=== PATIENT | male | born 2000 | race Two or more races ===

== ENCOUNTER → 2020-11-19 | Outpatient (CLI) | payer BC | END | disposition home or self-care (01) | LOC: LAB 09:57 | PROVIDERS: ATTEND Nurse Practitioner Family | DX: Z20.822 Contact with and (suspected) exposure to COVID-19 (principal) | CPT/HCPCS: C9803; U0003 ==

== ENCOUNTER 2024-12-09 09:58 | Outpatient (CLI) | payer BC ==
[2024-12-09 10:37] LABS: Hematocrit 45.0 % (41.0-53.0); Hemoglobin 14.9 g/dL (13.5-17.5); Mean Corpuscular Hemoglobin 29.5 pg (28.0-32.0); Mean Corpuscular Volume 88.8 fL (80.0-100.0); Nucleated Red Blood Cells % 0.1 %
[2024-12-09 10:49] LABS: Urine Budding Yeast OCCASIONAL /hpf (None Seen); Urine Protein, UAD Negative (Negative)
[2024-12-09 11:10] LABS: Alanine Aminotransferase 20 U/L (7-40); Albumin 4.4 g/dL (3.2-4.8); Alkaline Phosphatase 69 U/L (46-116); Anion Gap 8 (5-15); BUN/Creatinine Ratio 9.5 (10.0-20.0); Bilirubin, Total 0.5 mg/dL (0.2-1.0); Blood Urea Nitrogen 7 mg/dL (9-23); Calcium 8.6 mg/dL (8.7-10.4); Carbon Dioxide 24 mmol/L (20-31); Chloride 108 mmol/L (98-107); Cholesterol 221 mg/dL (< 200); Glucose 105 mg/dL (74-106); HDL Cholesterol 40 mg/dL (40-59); Potassium 3.8 mmol/L (3.5-5.1); Sodium 140 mmol/L (136-145); Total Protein 7.0 g/dL (5.7-8.2); Triglycerides 97 mg/dL (< 150)
== END 2024-12-09 17:00 | disposition home or self-care (01) ==
LOC: LAB 09:58
PROVIDERS: ATTEND Internal Medicine
DX: Z13.1 Encounter for screening for diabetes mellitus (principal); Z00.01 Encounter for general adult medical examination with abnormal findings
CPT/HCPCS: 36415; 80053; 80061; 81001; 82785; 83036; 84439; 84443; 85025; 86003

== ENCOUNTER 2025-03-16 12:17 | Emergency (ER) | payer BC ==
[~2025-03-16] VITALS: Ht 167.6 cm; Wt 122.2 kg
[2025-03-16 12:18] VITALS: BP 151/91; PULSE 105; RESP 18; TEMP 97.8; O2SAT 98
[2025-03-16 14:02] LABS: Hematocrit 43.5 % (36.0-46.0); Hemoglobin 14.7 g/dL (12.2-16.2); Mean Corpuscular Hemoglobin 29.9 pg (28.0-32.0); Mean Corpuscular Volume 88.7 fL (80.0-100.0); Nucleated Red Blood Cells % 0.2 %
[2025-03-16] MEDS: KETOROLAC TROMETH 30 MG/ML 1ML VIAL IV ONE (14:09)
[2025-03-16 14:10] LABS: Chloride 101 mmol/L (98-107); Potassium 3.8 mmol/L (3.5-5.1)
[2025-03-16 14:11] LABS: Anion Gap 9 (5-15); Carbon Dioxide 25 mmol/L (20-31)
[2025-03-16 14:12] LABS: Calcium 9.4 mg/dL (8.7-10.4)
[2025-03-16 14:13] LABS: Sodium 135 mmol/L (136-145)
[2025-03-16] MEDS: SODIUM CHLORIDE 0.9% 1,000 ML IV ONE (14:14)
--- NOTE | 2025-03-16 14:14 | ED.PDOC ---
General HPI Comments 24 y/o F, presents to the ED for CC of flank pain. Patient states, she has been experiencing right-sided flank pain with associated symptoms of nausea/vomiting and urinary frequency x2days. Patient denies hematuria, burning upon urination, vaginal discharge, or suprapubic abdominal pain. No other symptoms or modifying factors are present at this time. Chief Complaint: Flank Pain Time Seen by MD: 14:00 Reviewed notes: Nurses Notes, Medications, Allergies Allergies: Coded Allergies: NO KNOWN ALLERGIES (Unverified , 03/16/25) Home Meds Active Scripts Cephalexin Monohydrate (Cephalexin) 500 Mg Cap, 500 MG PO Q6HR for 14 Days, #56 TAB Prov:FLAVIA GORMAN MD 03/16/25 Information Source: Patient Mode of Arrival: Ambulatory Severity: Moderate Inability to void: Moderate Timing: Days Duration: Since onset Prehospital treatment: None Onset: Spontaneous Symptoms: Frequency History of: None Location: (R) Flank Modifying factors: None associated signs and symptoms: Nausea, Vomiting, Frequency Past Medical History PAST MEDICAL HISTORY: Denies Surgical History: Denies all surgeries FINISHED 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: 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 all FINISHED YARN EXAMINER Hx Family History Family History: Unknown Social History Smoker: Non-Smoker Alcohol: Denies ETOH Use Drugs: Denies Drug Use Lives In: Home Constitutional: denies: chills, diaphoresis, fatigue, fever, malaise, sweats, weakness, others EENTM: denies: blurred vision, double vision, ear bleeding, ear discharge, ear drainage, ear pain, ear ringing, eye pain, eye redness, hearing loss, mouth pain, mouth swelling, nasal discharge, nose bleeding, nose congestion, nose pain, photophobia, tearing, throat pain, throat swelling, voice changes, others Respiratory: denies: cough, hemoptysis, orthopnea, SOB at rest, shortness of breath, SOB with excertion, stridor, wheezing, others Cardiovascular: denies: chest pain, dizzy spells, diaphoresis, Dyspnea on exertion, edema, irregular heart beat, left arm pain, lightheadedness, palpitations, PND, syncope, others Gastrointestinal: reports: nausea, vomiting; denies: abdomen distended, abdominal pain, blood streaked bowels, constipated, diarrhea, dysphagia, difficulty swallowing, hematemesis, melena, poor appetite, poor fluid intake, rectal bleeding, rectal pain, others Genitourinary: reports: flank pain, frequency; denies: abnormal vagina bleeding, burning, dyspareunia, dysuria, hematuria, incontinence, pain, , vagina discharge, urgency, others Neurological: denies: dizziness, fainting, headache, left sided numbness, left sided weakness, numbness, paresthesia, pre-existing deficit, right sided numbness, right sided weakness, seizure, speech problems, tingling, tremors, weakness, others Musculoskeletal: denies: back pain, gout, joint pain, joint swelling, muscle pain, muscle stiffness, neck pain, others Integumetry: denies: bruises, change in color, change in hair/nails, dryness, laceration, lesions, lumps, rash, wounds, others Allergic/Immunocompromised: denies: Difficulty Healing, Frequent Infections, Hives, Itching, others Hematologic/Lymphatic: denies: anemia, blood clots, easy bleeding, easy bruising, swollen glands, others Endocrine: denies: excessive hunger, excessive sweating, excessive thirst, excessive urination, flushing, intolerance to cold, intolerance to heat, unexplained weight gain, unexplained weight loss, others Psychiatric: denies: anxiety, bipolar disorder, depression, hopeless, panic disorder, schizophrenia, sleepless, suicidal, others All Other Systems: Reviewed and Negative Physical Exam General Appearance: No Apparent Distress, Normal HEENT: Normal ENT Inspection, Pharynx Normal Neck: Full Range of Motion, Non-Tender, Normal, Normal Inspection Respiratory: Chest Non-Tender, Lungs Clear, No Accessory Muscle Use, No Respiratory Distress, Normal Breath Sounds Cardiovascular: No Edema, No Murmur, No Gallop, Normal Peripheral Pulses, Regular Rate/Rhythm Breast Exam: Deferred Gastrointestinal: No Organomegaly, Non Tender, No Pulsatile Mass, Normal Bowel Sounds, Soft Genitalia: Deferred Pelvic: Deferred Rectal: Deferred Extremities: No calf tenderness, Normal capillary refill, Normal inspection, Normal range of motion, Non-tender, No pedal edema Musculoskeletal : Location: Right Extremity Location: Other (CVA) Apperance: Tenderness Neurologic: Alert, managing director atlas II-XII nml as Tested, No Motor Deficits, Normal Affect, Normal Mood, No Sensory Deficits Cerebellar Function: Normal Reflexes: Normal Skin: Dry, Normal Color, Warm Lymphatic: No Adenopathy Was a procedure done? Was a procedure done?: No Differential Diagnosis Kidney stone (Female): Pyelonephritis Kidney stone (Male): N/A Penile/Scrotal: N/A Urinary Problem (Male): N/A Urinary Problem (Female): Urinary retention, Urolithiasis, UTI X-Ray, Labs, Meds, VS Vital Signs Date Time Temp Pulse Resp B/P (MAP) Pulse Ox O2 Delivery O2 Flow Rate FiO2 03/16/25 12:18 97.8 105 18 151/91 98 97.8 Lab Test 03/16/25 16:16 03/16/25 13:39 Range/Units Urine Color Yellow Yellow Urine Clarity Turbid H Clear Urine pH 6.0 5.0-9.0 Urine Specific Kersey 1.021 1.001-1.035 Urine Protein 2+ H Negative Urine Ketones 2+ H Negative Urine Blood 2+ H Negative /uL Urine Nitrite 1+ H Negative Urine Bilirubin Negative Negative Urine Urobilinogen Normal Negative mg/dL Urine Leukocyte Esterase 3+ Negative /uL Urine RBC 38 0 - 4 /hpf Urine Microscopic WBC 210 H 0-5 /HPF Urine Squamous Epithelial Cells Mod <5 /hpf Urine Bacteria Few H None Seen /hpf Urine Mucus Few None Seen Urine Glucose Normal Normal mg/dL White Blood Count 17.8 H 4.4-10.8 10^3/uL Red Blood Count 4.90 4.0-5.20 10^6/uL Hemoglobin 14.7 12.2-16.2 g/dL Hematocrit 43.5 36.0-46.0 % Mean Corpuscular Volume 88.7 80.0-100.0 fL Mean Corpuscular Hemoglobin 29.9 28.0-32.0 pg Mean Corpuscular Hemoglobin Concent 33.8 32.0-36.0 g/dL Red Cell Distribution Width 14.6 H 11.8-14.3 % Platelet Count 148 140-450 10^3/uL Mean Platelet Volume 10.4 6.9-10.8 fL Neutrophils (%) (Auto) 89.5 H 37.0-80.0 % Lymphocytes (%) (Auto) 3.6 L 10.0-50.0 % Monocytes (%) (Auto) 6.6 0.0-12.0 % Eosinophils (%) (Auto) 0.0 0.0-7.0 % Basophils (%) (Auto) 0.3 0.0-2.0 % Neutrophils # (Auto) 15.9 H 1.6-8.6 10 ^3/uL Lymphocytes # (Auto) 0.6 0.4-5.4 10 ^3/uL Monocytes # (Auto) 1.2 0-1.3 10 ^3/uL Eosinophils # (Auto) 0 0-0.8 10 ^3/uL Basophils # (Auto) 0 0-0.2 10 ^3/uL Nucleated Red Blood Cells 0.2 % Platelet Estimate Decreased Giant Platelets Few Sodium Level 135 L 136-145 mmol/L Potassium Level 3.8 3.5-5.1 mmol/L Chloride Level 101 98-107 mmol/L Carbon Dioxide Level 25 20-31 mmol/L Anion Gap 9 5-15 Blood Urea Nitrogen 7 L 9-23 mg/dL Creatinine 0.89 0.550-1.02 mg/dL Glomerular Filtration Rate Calc 93 >90 mL/min BUN/Creatinine Ratio 7.9 L 10.0-20.0 Serum Glucose 116 H 74-106 mg/dL Calcium Level 9.4 8.7-10.4 mg/dL Current Medications Medications (Trade) Dose Ordered Sig/Wayne Route Start Time Stop Time Status Last Admin Sodium Chloride 1,000 ml @ 1,000 mls/hr Q1H ONCE IV 03/16/25 13:30 03/16/25 14:29 DC 03/16/25 14:14 Ketorolac Tromethamine (Toradol Injection) 15 mg ONCE ONCE IV 03/16/25 13:30 03/16/25 13:32 DC 03/16/25 14:09 Ceftriaxone Sodium 50 ml @ 100 mls/hr ONCE ONCE IV 03/16/25 16:15 03/16/25 16:44 DC 03/16/25 17:[address] [address] Ph: [phone] DIAGNOSTIC IMAGING Diagnostic Imaging Report : [id number] Signed PATIENT: EPHRAIM WEBER MACCT: [id number] UNIT: [id number] : 2000 LOC: ER ROOM / BED: / AGE / SEX: 24 / F ADM STATUS: REG ER SERVICE 1330 ORDERING PHYSICIAN: FLAVIA GORMAN MD PROCEDURE(s): ABPL - CT AB PEL WO CON-NO ORAL OR IV REASON: r/o right kidney stone/appy ORDER NUMBER(s): [id number], ACCESSION NUMBER(s): [id number] EXAM: CT CT AB PEL WO CON-NO ORAL OR IV History: r/o right kidney stone/appy. Pain. Comparison Study: None TECHNIQUE: Multidetector spiral CT of the abdomen was performed from lung bases to pubic symphysis. Imaging was performed without IV contrast. Axial, coronal and sagittal multiplanar reformats were obtained from the axial data set by the technologist. Radiation Dose : 1. Abdomen/Pelvis: CTDIvol 23.55 mGy, DLP 1417.73 mGy*cm. FINDINGS: Evaluation of solid organs is limited due to lack of intravenous contrast use. Lung Bases: No acute or significant lung base finding. Normal heart size. No pleural or pericardial effusion. Liver: The liver is normal in size. No focal lesions. Gallbladder and Biliary Tree: Unremarkable Spleen: Unremarkable Pancreas: The pancreas is grossly normal in appearance. Adrenal Glands: Unremarkable Kidneys: Mild perinephric and periureteric edema on the right. No hydronephrosis or calculus is seen. Bladder: Grossly unremarkable for degree of distention. Bowel: The stomach is grossly normal in appearance. Small bowel and colon are normal in caliber and distribution. Normal appendix is visualized in the right lower quadrant without findings of appendicitis. Ascites: Trace pelvic fluid. Lymphadenopathy: No mesenteric, retroperitoneal or periportal lymphadenopathy. Abdominal Wall and Mesentery: Unremarkable. Vasculature: The visualized abdominal aorta is normal in size and caliber. Evaluation of abdominal and pelvic vessels is limited due to lack of intravenous contrast. Pelvic Organs: Unremarkable Musculoskeletal: No aggressive focal bony lesions, acute fractures or dislocation. IMPRESSION: Mild right perinephric and periureteric edema without any residual stone. This could be related to a recently passed stone. Alternatively, an ascending urinary tract infection with pyelonephritis could have a similar appearance. Please correlate clinically. Otherwise no clear cause for symptoms. Radiation optimization: All CT scans at this facility use at least one of these dose optimization techniques: automated exposure control mA and/or kV adjustm ent per patient size (includes targeted exams where dose is matched to clinical indication) or iterative reconstruction. ATED BY: LUISITO MERCER MD DICTATED DATE/TIME: 03/16/251510 SIGNED BY: LUISITO MERCER MD SIGNED DATE/TIME: 03/16/251510 CC: X-Ray, Labs, Meds, VS Comment Patient presents with constellation of symptoms with positive UA that likely represents acute pyelonephritis. Given fluid bolus and ceftriaxone here in the emergency department guided by previously available culture data if available. Patient is otherwise hemodynamically stable without evidence of obstructing stone. Patient to be discharged home with prescription of Keflex and follow-up with primary care doctor within one week. Reviewed strict return precautions including, but not limited to worsening fever, PO intolerance, and worsening pain despite 48 hr antibiotics. Patient is in agreement with the plan and all questions answered. Considered nephrolithiasis, obstructed stone, atypical appendicitis, AAA, aortic dissection, genital torsion, cholecystitis, but consider these to be less likely based on history/physical/evaluation as above. Images Reviewed?: Images reviewed and evaluated by me Time of 1ST Reevaluation: 14:30 Reevaluation 1ST: Unchanged Patient Education/Counseling: Diagnosis, Treatment Family Education/Counseling: No Family Present SEPSIS Sepsis Screen Date sepsis recognized/suspect: Mar 16, 2025 Time Sepsis recognized/suspect: 1218 Recent Procedure: No On Antibiotic Therapy: No Respiratory Rate >20: No Heart Rate >90: Yes Temp<36 C (96.8 F) or >38.3 C: No SBP <90 or MAP <65 mmHG: No New Acute Mental Status Change: No Is the patient on CPAP, BIPAP,: No Physician Orders Ct Ab Pel Wo Con-No Oral Or Iv (03/16/25 13:30) Vital Signs Date Time Temp Pulse Resp B/P (MAP) Pulse Ox O2 Delivery O2 Flow Rate FiO2 03/16/25 12:18 97.8 105 18 151/91 98 97.8 Laboratory Tests Test 03/16/25 13:39 White Blood Count 17.8 10^3/uL (4.4-10.8) H Medications Medications Dose Ordered Sig/Wayne Route Start Time Stop Time Status Last Admin Dose Admin Ceftriaxone Sodium 50 ml @ 100 mls/hr ONCE ONCE IV 03/16/25 16:15 03/16/25 16:44 DC 03/16/25 17:03 Ketorolac Tromethamine 15 mg ONCE ONCE IV 03/16/25 13:30 03/16/25 13:32 DC 03/16/25 14:09 Sodium Chloride 1,000 ml @ 1,000 mls/hr Q1H ONCE IV 03/16/25 13:30 03/16/25 14:29 DC 03/16/25 14:14 Departure 1 Departure Time of Disposition: 18:56 Impression: Primary Impression: Pyelonephritis Disposition: HOME / SELF CARE / HOMELESS Condition: Stable e-Prescriptions Cephalexin Monohydrate (Cephalexin) 500 Mg Cap 500 MG PO Q6HR for 14 Days, #56 TAB Prov: FLAVIA GORMAN MD 03/16/25 Discharged With: Relative (Mother) Critical Care Note Critical Care Time?: Yes (30 min-critical care time only) Stability Stability form required: No Heart Score Heart Score: Heart Score Response (Comments) Value History N/A 0 EKG N/A 0 Age N/A 0 Risk Factors N/A 0 Troponin N/A 0 Total 0 I personally scribed for FLAVIA GORMAN MD ([email or web address]) on 03/16/25 at 14:14. Electronically submitted by Kim Krishnamurthy ([email or web address]). I personally scribed for FLAVIA GORMAN MD ([email or web address]) on 03/16/25 at 16:01. Electronically submitted by Kim Krishnamurthy ([email or web address]). FLAVIA GORMAN MD Mar 16, 2025 14:14
[2025-03-16 14:17] LABS: BUN/Creatinine Ratio 7.9 (10.0-20.0); Blood Urea Nitrogen 7 mg/dL (9-23); Glucose 116 mg/dL (74-106)
[2025-03-16 14:33] LABS: Giant Platelets Few
--- NOTE | 2025-03-16 15:13 | DVH ---
EXAM: CT CT AB PEL WO CON-NO ORAL OR IV History: r/o right kidney stone/appy. Pain. Comparison Study: None TECHNIQUE: Multidetector spiral CT of the abdomen was performed from lung bases to pubic symphysis. Imaging was performed without IV contrast. Axial, coronal and sagittal multiplanar reformats were obtained from the axial data set by the technologist. Radiation Dose : 1. Abdomen/Pelvis: CTDIvol 23.55 mGy, DLP 1417.73 mGy*cm. FINDINGS: Evaluation of solid organs is limited due to lack of intravenous contrast use. Lung Bases: No acute or significant lung base finding. Normal heart size. No pleural or pericardial effusion. Liver: The liver is normal in size. No focal lesions. Gallbladder and Biliary Tree: Unremarkable Spleen: Unremarkable Pancreas: The pancreas is grossly normal in appearance. Adrenal Glands: Unremarkable Kidneys: Mild perinephric and periureteric edema on the right. No hydronephrosis or calculus is seen. Bladder: Grossly unremarkable for degree of distention. Bowel: The stomach is grossly normal in appearance. Small bowel and colon are normal in caliber and distribution. Normal appendix is visualized in the right lower quadrant without findings of appendicitis. Ascites: Trace pelvic fluid. Lymphadenopathy: No mesenteric, retroperitoneal or periportal lymphadenopathy. Abdominal Wall and Mesentery: Unremarkable. Vasculature: The visualized abdominal aorta is normal in size and caliber. Evaluation of abdominal and pelvic vessels is limited due to lack of intravenous contrast. Pelvic Organs: Unremarkable Musculoskeletal: No aggressive focal bony lesions, acute fractures or dislocation. IMPRESSION: Mild right perinephric and periureteric edema without any residual stone. This could be related to a recently passed stone. Alternatively, an ascending urinary tract infection with pyelonephritis could have a similar appearance. Please correlate clinically. Otherwise no clear cause for symptoms. Radiation optimization: All CT scans at this facility use at least one of these dose optimization techniques: automated exposure control mA and/or kV adjustment per patient size (includes targeted exams where dose is matched to clinical indication) or iterative reconstruction.
[2025-03-16 16:37] LABS: Urine Protein, UAD 2+ (Negative)
[2025-03-16] MEDS ORDERED: CEPH500C PO (17:51)
== END 2025-03-16 19:01 | disposition home or self-care (01) ==
LOC: ER 12:17
DX: N12 Tubulo-interstitial nephritis, not specified as acute or chronic (principal)
CPT/HCPCS: 36415; 74176; 80048; 81001; 85025; 96361; 96365; 96375; 99285; J0696; J1885; J7030